=== PATIENT | female | born 1990 | race African-American/Black ===

== ENCOUNTER 2024-07-30 10:25 | Emergency (ER) | payer MEDICAID, OTHER ==
[~2024-07-30] VITALS: Ht 162.6 cm; Wt 74.8 kg
[2024-07-30 11:28] LABS: *BILIRUBIN,URIN NEGATIVE (NEGATIVE); *CLARITY,URINE CLEAR (CLEAR); *COLOR,URINE YELLOW (YELLOW); *KETONES,URINE NEGATIVE (NEGATIVE); *PROTEIN,URINE NEGATIVE (NEGATIVE); LEUKOCYTE ESTERASE ,URINE 1+ (NEGATIVE); NITRITE, URINE NEGATIVE (NEGATIVE); PH,URINE 6.5 (5.0-8.0); UGLUCOSE NEGATIVE (NEGATIVE)
[2024-07-30 11:32] LABS: *BLOOD, URINE TRACE (NEGATIVE)
[2024-07-30 11:34] LABS: *URINE HCG, QUAL NEGATIVE (NEGATIVE); BACTERIA,URINE FEW /HPF (NONE SEEN); SQUAMOUS EPITHELIAL CELL,UR FEW /HPF (NONE SEEN); WBC,URINE 20-50 /HPF (0-3)
[2024-07-30] MEDS ORDERED: SULF1TAB48 PO (11:53)
[2024-07-30] MEDS ORDERED: PHEN-705 PO (11:53)
[2024-07-30] MEDS ORDERED: SULFAMETH/TRIMETH 800/160 MG TABLET ONE (12:01)
[2024-07-30] MEDS: SULFAMETH/TRIMETH 800/160 MG TABLET PO ONE (12:04)
[2024-07-30 12:09] VITALS: BP 100/76; TEMP 98.7; O2SAT 100
== END 2024-07-30 12:05 | disposition home or self-care (01) ==
LOC: ER 10:25
DX: N39.0 Urinary tract infection, site not specified (principal); R10.31 Right lower quadrant pain; Z88.0 Allergy status to penicillin; Z88.5 Allergy status to narcotic agent; Z88.8 Allergy status to other drugs, medicaments and biological substances; W19.XXXA Unspecified fall, initial encounter; Y93.89 Activity, other specified; Y92.89 Other specified places as the place of occurrence of the external cause; Y99.8 Other external cause status
CPT/HCPCS: 76700; 84703; A4606; A4663